=== PATIENT | male | born 1990 | race Caucasian/White ===

== ENCOUNTER 2019-02-16 12:05 | Emergency (ER) | payer MEDICAID ==
[~2019-02-16] VITALS: Ht 175.3 cm; Wt 85.7 kg
[2019-02-16 12:20] VITALS: BP 136/77
--- NOTE | 2019-02-16 12:43 | NUR ---
SEEN AND EXAMINED BY ALONSO OLMOS
[2019-02-16] MEDS ORDERED: CYCLOBENZAPRINE 10 MG TABLET ONE (12:47)
[2019-02-16] MEDS ORDERED: CYCLOBENZAPRINE 10 MG TABLET PO ONE (13:00)
--- NOTE | 2019-02-16 13:09 | NUR ---
Patient discharged to home in stable condition. Written and verbal after care instructions given. Patient verbalizes understanding of instruction.
== END 2019-02-16 13:09 | disposition home or self-care (01) ==
LOC: ER 12:08
DX: M54.42 Lumbago with sciatica, left side (principal)